=== PATIENT | male | born 1945 | race Caucasian/White ===

== ENCOUNTER 2018-01-27 11:17 | Outpatient (CLI) | payer MEDICARE ==
--- NOTE | 2018-01-27 13:08 | RAD ---
TWO VIEW CHEST: HISTORY: Cough and COPD. FINDINGS: The lungs are well aerated. Mild interstitial prominence is noted. There is no evidence of infiltra te or effusion. No evidence of vascular congestion. Heart size within normal range. Mild aortic ca lcification. Mild degenerative spine change. IMPRESSION: Mild interstitial prominence. The chest was otherwise unremarkable. POS: [facility]
== END 2018-01-27 11:18 | disposition home or self-care (01) ==
LOC: SCSRAD 11:17
PROVIDERS: ATTEND Family Medicine
DX: J44.9 Chronic obstructive pulmonary disease, unspecified (principal)
CPT/HCPCS: 71046

== ENCOUNTER 2018-06-26 20:25 | Emergency (ER) | payer MEDICARE ==
[2018-06-26] MEDS ORDERED: Lidocaine 1% PF 5 ML VIAL ONE (20:55)
[2018-06-26] MEDS ORDERED: Adacel (T-DAP) 0.5 ML VIAL ONE (20:57)
== END 2018-06-26 21:30 | disposition home or self-care (01) ==
LOC: SCSER 20:25
DX: S61.012A Laceration without foreign body of left thumb without damage to nail, initial encounter (principal); I10 Essential (primary) hypertension; Z23 Encounter for immunization; Z79.899 Other long term (current) drug therapy; W26.0XXA Contact with knife, initial encounter
CPT/HCPCS: 12001; 90471; 90715; 99406; J2001

== ENCOUNTER 2020-05-08 10:19 | Outpatient (CLI) | payer MEDICARE ==
--- NOTE | 2020-05-08 13:07 | RAD ---
LEFT HAND 3 VIEWS: Date: 05/08/2020 HISTORY: Injury to hand and wrist region. FINDINGS: The bones appear demineralized. There are arthritic changes of the hand. These include typical osteoa rthritic changes of the interphalangeal joints, first carpometacarpal joint space, and in addition th ere is joint space narrowing at the second and third metacarpophalangeal joints with some possible ea rly osteophyte changes of the third metacarpal. There is chondrocalcinosis of the triangular fibrocar tilage. 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 IMPRESSION: 1. No evidence of fracture. 2. Arthritic changes of the wrist. This includes typical osteoarthritic changes, but other changes t hat would suggest the possibility of pyrophosphate arthropathy. POS: [facility]
--- NOTE | 2020-05-08 13:11 | RAD ---
LEFT WRIST 3 VIEWS: Date: 05/08/2020 HISTORY: Wrist pain. Injury to left wrist. 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 There is narrowing of the radiocarpal joint with chondrocalcinosis seen at the triangular fibrocartilage and at the radiocarpal joint. Degenerative c hanges are seen at the carpometacarpals. There is dorsiflexion of the lunate, which is probably chronic. There is deformity of the scaphoid an d also deformity of the trapezium. Acute carpal fracture cannot be excluded involving trapezium or sc aphoid, although these findings may be chronic. Recommend further evaluation of the wrist with MRI or CT to better delineate carpal abnormalities. POS: [facility]
== END 2020-05-08 10:20 | disposition home or self-care (01) ==
LOC: SCSRAD 10:19
PROVIDERS: ATTEND Family Medicine
DX: S69.92XA Unspecified injury of left wrist, hand and finger(s), initial encounter (principal); M19.032 Primary osteoarthritis, left wrist; M25.832 Other specified joint disorders, left wrist; M11.232 Other chondrocalcinosis, left wrist; M21.232 Flexion deformity, left wrist

== ENCOUNTER 2023-04-28 09:51 | Outpatient (CLI) | payer MEDICARE ==
[2023-04-28 10:56] LABS: Hematocrit 37.1 % (38.8-50.0); Hemoglobin 13.1 g/dL (13.5-17.5)
[2023-04-28 11:18] LABS: Anion Gap 15 mmol/L (10-20); BUN (Urea Nitrogen) 10 mg/dL (8.4-25.7); Calc. Creatinine Clearance 0 mL/min (70-130); Calcium 9.3 mg/dL (7.8-10.44); Carbon Dioxide 23 mmol/L (23-31); Chloride 100 mmol/L (98-107); Estimated GFR 91; Glucose 86 mg/dL (83-110); Potassium 4.3 mmol/L (3.5-5.1); Sodium 134 mmol/L (136-145)
== END 2023-04-28 09:52 | disposition home or self-care (01) ==
LOC: LABBT 09:51
PROVIDERS: ATTEND Student in an Organized Health Care Education/Training Program
DX: Z01.818 Encounter for other preprocedural examination (principal); C44.222 Squamous cell carcinoma of skin of right ear and external auricular canal; H93.8X1 Other specified disorders of right ear
CPT/HCPCS: 80048; 85014; 85018; 93005; 93010

== ENCOUNTER 2023-05-05 07:14 | Day surgery (SDC) | payer MEDICARE ==
[2023-04-28 10:26] VITALS: BMI 20.2
[~2023-05-05 07:14] MED LIST: Dexmedetomidine 200 MCG/2 ML VIAL ONE; fentaNYL 50 mcg/mL 1 mL Vial ONE
[2023-05-05] MEDS ORDERED: Bacitracin Zinc Ointment 30 gm TUBE ONE (08:10)
[2023-05-05] MEDS ORDERED: Lidocaine 1% (PF) 30 ML VIAL ONE (08:10)
[2023-05-05] MEDS ORDERED: Tobramycin/Dexamethasone Ophth Oint 3.5 GM TUBE ONE (08:10)
[2023-05-05] MEDS ORDERED: EPINEPHrine 1 MG/ML AMP ONE (08:10)
[2023-05-05] MEDS ORDERED: Propofol 500 MG/50 ML VIAL ONE (08:24)
[2023-05-05] MEDS ORDERED: Glycopyrrolate 0.2 MG/ML 5 ML SYRINGE ONE (08:49)
[2023-05-05] MEDS ORDERED: PROPOFOL 200 MG/20 ML VIAL ONE (08:49)
== END 2023-05-05 11:13 | disposition home or self-care (01) ==
LOC: SDC 07:14
PROVIDERS: ATTEND Student in an Organized Health Care Education/Training Program
PROC: 0HX2XZZ Transfer Right Ear Skin, External Approach (ICD-10-PCS; principal; 2023-05-05)
DX: C44.222 Squamous cell carcinoma of skin of right ear and external auricular canal (principal); H93.8X1 Other specified disorders of right ear; I10 Essential (primary) hypertension; F17.210 Nicotine dependence, cigarettes, uncomplicated; Z79.82 Long term (current) use of aspirin; Z79.899 Other long term (current) drug therapy
CPT/HCPCS: 14060; J3010; 88305; 88331; 88332; J0171; J2001; J2704

== ENCOUNTER 2023-07-15 14:47 | Outpatient (CLI) | payer MEDICARE | END 2023-07-15 14:48 | disposition home or self-care (01) | LOC: ULT 14:47 | PROVIDERS: ATTEND Family Medicine | DX: I73.9 Peripheral vascular disease, unspecified (principal); R93.6 Abnormal findings on diagnostic imaging of limbs | CPT/HCPCS: 93923 ==

== ENCOUNTER 2023-08-19 07:48 | Outpatient (CLI) | payer MEDICARE ==
[2023-08-19] MEDS ORDERED: Iopamidol 370 76% 100 ML VIAL ONE (10:36)
== END 2023-08-19 07:49 | disposition home or self-care (01) ==
LOC: CT 07:48
PROVIDERS: ATTEND Thoracic Surgery (Cardiothoracic Vascular Surgery)
DX: I70.223 Atherosclerosis of native arteries of extremities with rest pain, bilateral legs (principal); I74.5 Embolism and thrombosis of iliac artery
CPT/HCPCS: 75635; 82565

== ENCOUNTER 2023-09-03 08:19 | Outpatient (CLI) | payer MEDICARE ==
[2023-09-03 11:32] LABS: Anion Gap 13 mmol/L (10-20); BUN (Urea Nitrogen) 13 mg/dL (8.4-25.7); Calc. Creatinine Clearance 0 mL/min (70-130); Calcium 9.3 mg/dL (7.8-10.44); Carbon Dioxide 25 mmol/L (23-31); Chloride 103 mmol/L (98-107); Estimated GFR 92; Glucose 79 mg/dL (83-110); Potassium 4.7 mmol/L (3.5-5.1); Sodium 136 mmol/L (136-145)
== END 2023-09-03 08:20 | disposition home or self-care (01) ==
LOC: LABBT 08:19
PROVIDERS: ATTEND Thoracic Surgery (Cardiothoracic Vascular Surgery)
DX: Z01.818 Encounter for other preprocedural examination (principal); I70.223 Atherosclerosis of native arteries of extremities with rest pain, bilateral legs
CPT/HCPCS: 80048; 93005; 93010

== ENCOUNTER 2023-09-03 08:30 | Inpatient (IN) | payer MEDICARE ==
[2023-09-03 10:47] LABS: Hematocrit 36.6 % (38.8-50.0); Hemoglobin 12.7 g/dL (13.5-17.5); Mean Corpuscular HGB CONC 34.7 g/dL (32.0-36.0); Mean Corpuscular Hemoglobin 34.8 pg (27.0-33.0); Mean Corpuscular Volume 100.3 fl (81.2-95.1); Mean Platelet Volume 10.6 fl (7.4-10.4); Platelet Count 236 10x3/uL (150-450); RBC Distribution Width 12.7 % (11.5-14.5); Red Blood Cell (RBC) Count 3.65 10x6/uL (4.32-5.72); White Blood Cell (WBC) Count 8.9 10x3/uL (3.5-10.5)
[2023-09-04] MEDS ORDERED: Lidocaine 1% MPF 2 ML VIAL ONE ×2 (06:11→07:14)
[2023-09-04] MEDS ORDERED: Heparin 10,000 UNITS/ 10 ML VIAL ONE ×2 (06:41→08:16)
[2023-09-04] MEDS ORDERED: Heparin 5,000 UNITS/ML VIAL ONE (06:42)
[2023-09-04] MEDS ORDERED: Heparin 10,000 UNITS/1 ML VIAL 30,000 UNITS in Sodium Chloride 0.9% 1,000 ML FS SCH (07:00)
[2023-09-04] MEDS ORDERED: CEFAZOLIN 2 GM VIAL ONE (07:36)
[2023-09-04] MEDS ORDERED: Sodium Chloride 0.9% 100 ML ONE (07:36)
[2023-09-04] MEDS ORDERED: Esmolol 100 MG/10 ML VIAL ONE (07:39)
[2023-09-04] MEDS ORDERED: Dexamethasone 4 mg/ml Vial ONE (07:39)
[2023-09-04] MEDS ORDERED: Lidocaine 1% PF 5 ML VIAL ONE ×2 (07:39→08:16)
[2023-09-04] MEDS ORDERED: Rocuronium Bromide 10 MG/ML (10ML VIAL) ONE (07:39)
[2023-09-04] MEDS ORDERED: Ondansetron PF 4 MG/2 ML Vial ONE ×2 (07:39→08:16)
[2023-09-04] MEDS ORDERED: PROPOFOL 20 ML ONE (07:39)
[2023-09-04] MEDS ORDERED: PHENYLEPHRINE-NS 100 MCG/ML 10 ML SYRINGE ONE (07:39)
[2023-09-04] MEDS ORDERED: fentaNYL 50 mcg/mL 1 mL Vial ONE ×2 (07:45→11:55)
[2023-09-04] MEDS ORDERED: Sodium Chloride 0.9% 200 ML ONE (08:16)
[2023-09-04] MEDS ORDERED: Dexamethasone 20 MG/5 ML VIAL ONE (08:16)
[2023-09-04] MEDS ORDERED: Sodium Chloride 0.9% 250 ML 750 ML ONE (08:16)
[2023-09-04] MEDS ORDERED: NOREPINEPHRINE 8 MG/250 ML-D5W 250 ML ONE (08:16)
[2023-09-04] MEDS ORDERED: CEFAZOLIN 1 GM VIAL ONE (08:17)
[2023-09-04] MEDS ORDERED: Calcium Chloride 1 GM/10 ML Abboject SYRINGE ONE (08:17)
[2023-09-04] MEDS ORDERED: Protamine Sulfate 50 MG/5 ML VIAL ONE (09:51)
[2023-09-04] MEDS ORDERED: HYDROmorphone 2 MG/ML VIAL ONE (10:06)
[2023-09-04] MEDS ORDERED: Glycopyrrolate 0.2 MG/ML 5 ML SYRINGE ONE (10:38)
[2023-09-04] MEDS ORDERED: NEOSTIGMINE 3 MG/3 ML SYR 3 MG/3 ML SYRINGE ONE (10:38)
[2023-09-04] MEDS ORDERED: Ondansetron HCl/PF 4 MG/2 ML Vial IVP PRN (11:34)
[2023-09-04] MEDS ORDERED: Promethazine HCl 25 MG/ML VIAL IM PRN ×2 (11:34)
[2023-09-04] MEDS ORDERED: diphenhydrAMINE 50 MG/ML VIAL IVP PRN (11:34)
[2023-09-04] MEDS ORDERED: HYDROmorphone 2 MG/ML VIAL SLOW IVP PRN (11:34)
[2023-09-04] MEDS ORDERED: diphenhydrAMINE 25 MG CAP PO PRN (11:34)
[2023-09-04] MEDS ORDERED: Naloxone HCl 0.4 mg/ml Vial IV PRN (11:34)
[2023-09-04] MEDS ORDERED: diphenhydrAMINE 50 MG/ML VIAL IM PRN (11:34)
[2023-09-04] MEDS ORDERED: Phenylephrine 40 MG/NS 250 ML 40 MG in Premix 1 BAG IVPB PRN (11:41)
[2023-09-04] MEDS ORDERED: fentaNYL 50 mcg/mL 1 mL Vial SLOW IVP PRN (11:41)
[2023-09-04] MEDS ORDERED: Ipratropium/Albuterol 3 ML NEB NEB PRN (11:41)
[2023-09-04] MEDS ORDERED: Ondansetron PF 4 MG/2 ML Vial IVP PRN (11:41)
[2023-09-04] MEDS ORDERED: Communication Order-Pharmacy FS SCH (11:45)
[2023-09-04] MEDS ORDERED: hydrALAZINE 20 MG/ML VIAL ONE (12:04)
[2023-09-04] MEDS: Lactated Ringer's 1,000 ML IV SCH ×2 (12:10→18:03)
[2023-09-04] MEDS ORDERED: HYDROmorphone 0.5 MG/0.5 ML SYRINGE ONE ×2 (12:15→12:42)
[2023-09-04 12:52] LABS: Hematocrit 35.9 % (42.0-52.0); Hemoglobin 12.4 g/dL (14.0-18.0); Mean Corpuscular HGB CONC 34.5 g/dL (32.0-36.0); Mean Corpuscular Hemoglobin 34.7 pg (27.0-31.0); Mean Corpuscular Volume 100.6 fl (78.0-98.0); Mean Platelet Volume 10.2 fL (7.4-10.4); Platelet Count 217 10x3/uL (130-400); RBC Distribution Width 12.5 % (11.5-14.5); Red Blood Cell (RBC) Count 3.57 mill/uL (4.70-6.10); White Blood Cell (WBC) Count 22.2 10x3/uL (4.8-10.8)
[2023-09-04] MEDS: niCARdipine 25 MG in Sodium Chloride 0.9% 250 ML 250 ML IVPB PRN ×2 (12:55→21:30)
[2023-09-04 13:18] LABS: Anion Gap 16 mmol/L (10-20); BUN (Urea Nitrogen) 10 mg/dL (8.4-25.7); Calc. Creatinine Clearance 61 mL/min (70-130); Calcium 8.6 mg/dL (7.8-10.44); Carbon Dioxide 20 mmol/L (23-31); Chloride 105 mmol/L (98-107); Estimated GFR 94; Glucose 148 mg/dL (83-110); Potassium 4.1 mmol/L (3.5-5.1); Sodium 137 mmol/L (136-145)
[2023-09-04] MEDS ORDERED: FLU VACC QS2023(65UP)/MF59C/PF 60 MCG/0.5 ML SYRINGE IM ONE (16:30)
[2023-09-04] MEDS: CEFAZOLIN 2 GM in Sodium Chloride 0.9% 100 ML IVPB SCH ×2 (16:38→23:56)
[2023-09-05] MEDS: Lactated Ringer's 1,000 ML IV SCH ×3 (01:49→17:59)
[2023-09-05] MEDS: niCARdipine 25 MG in Sodium Chloride 0.9% 250 ML 250 ML IVPB PRN ×3 (01:55→20:02)
[2023-09-05 04:19] LABS: #Monocytes 1.9 thou/uL (0.11-0.59); #Neutrophils 10.7 thou/uL (1.40-6.50); %Basophils 0.1 % (0.0-1.0); %Eosinophils 0.3 % (0.0-10.0); %Monocytes 13.3 % (0.0-10.0); %Neutrophils 76.9 % (42.0-75.0); Hematocrit 28.9 % (42.0-52.0); Mean Corpuscular HGB CONC 34.6 g/dL (32.0-36.0); Mean Corpuscular Hemoglobin 35.3 pg (27.0-31.0); Mean Corpuscular Volume 102.1 fl (78.0-98.0); Mean Platelet Volume 10.3 fL (7.4-10.4); Platelet Count 178 10x3/uL (130-400); RBC Distribution Width 12.9 % (11.5-14.5); Red Blood Cell (RBC) Count 2.83 mill/uL (4.70-6.10)
[2023-09-05 04:38] LABS: Anion Gap 11 mmol/L (10-20); BUN (Urea Nitrogen) 10 mg/dL (8.4-25.7); Calc. Creatinine Clearance 58 mL/min (70-130); Calcium 8.3 mg/dL (7.8-10.44); Carbon Dioxide 24 mmol/L (23-31); Chloride 104 mmol/L (98-107); Estimated GFR 93; Glucose 110 mg/dL (83-110); Potassium 4.1 mmol/L (3.5-5.1); Sodium 135 mmol/L (136-145)
[2023-09-05] MEDS: CEFAZOLIN 2 GM in Sodium Chloride 0.9% 100 ML IVPB SCH (09:25)
[2023-09-05] MEDS: Ondansetron PF 4 MG/2 ML Vial IVP PRN (11:56)
[2023-09-06] MEDS: Lactated Ringer's 1,000 ML IV SCH (01:45)
[2023-09-06] MEDS: HYDROmorphone/PF 10 MG in Sodium Chloride 0.9% 99 ML IV PRN (03:30)
[2023-09-06] MEDS: hydrALAZINE 20 MG/ML VIAL SLOW IVP PRN (04:23)
[2023-09-06] MEDS: niCARdipine 25 MG in Sodium Chloride 0.9% 250 ML 250 ML IVPB PRN ×2 (04:57→18:48)
[2023-09-06 06:01] LABS: #Monocytes 1.9 thou/uL (0.11-0.59); #Neutrophils 11.5 thou/uL (1.40-6.50); %Basophils 0.3 % (0.0-1.0); %Eosinophils 0.1 % (0.0-10.0); %Lymphocytes 7.2 % (21.0-51.0); %Monocytes 12.8 % (0.0-10.0); %Neutrophils 79.3 % (42.0-75.0); Hematocrit 28.6 % (42.0-52.0); Mean Corpuscular Hemoglobin 35.2 pg (27.0-31.0); Mean Corpuscular Volume 100.7 fl (78.0-98.0); Mean Platelet Volume 10.7 fL (7.4-10.4); Platelet Count 161 10x3/uL (130-400); RBC Distribution Width 12.8 % (11.5-14.5); Red Blood Cell (RBC) Count 2.84 mill/uL (4.70-6.10); White Blood Cell (WBC) Count 14.5 10x3/uL (4.8-10.8)
[2023-09-06 06:27] LABS: Anion Gap 10 mmol/L (10-20); BUN (Urea Nitrogen) 9 mg/dL (8.4-25.7); Calc. Creatinine Clearance 65 mL/min (70-130); Calcium 8.4 mg/dL (7.8-10.44); Carbon Dioxide 27 mmol/L (23-31); Chloride 100 mmol/L (98-107); Estimated GFR 96; Glucose 91 mg/dL (83-110); Potassium 3.8 mmol/L (3.5-5.1); Sodium 133 mmol/L (136-145)
[2023-09-06] MEDS: D5 1/2 NS w/20 mEq KCL 1,000 ML IV SCH ×3 (08:29→23:58)
[2023-09-06] MEDS: Ondansetron PF 4 MG/2 ML Vial IVP PRN (09:02)
[2023-09-06] MEDS: Metoprolol Tartrate 5 MG (5 mL) VIAL IVP PRN (09:27)
[2023-09-07] MEDS: niCARdipine 25 MG in Sodium Chloride 0.9% 250 ML 250 ML IVPB PRN ×3 (04:22→22:42)
[2023-09-07] MEDS: hydrALAZINE 20 MG/ML VIAL SLOW IVP PRN (06:00)
[2023-09-07] MEDS: D5 1/2 NS w/20 mEq KCL 1,000 ML IV SCH (08:00)
[2023-09-07] MEDS: Metoprolol Tartrate 5 MG (5 mL) VIAL IVP PRN (09:18)
[2023-09-07] MEDS ORDERED: Aspirin 81 mg Enteric Coated Tablet PO SCH (13:30)
[2023-09-07] MEDS: Lisinopril 5 MG TAB PO SCH (21:00)
[2023-09-08] MEDS: HYDROmorphone/PF 10 MG in Sodium Chloride 0.9% 99 ML IV PRN (04:22)
[2023-09-08] MEDS: D5 1/2 NS w/20 mEq KCL 1,000 ML IV SCH (04:41)
[2023-09-08] MEDS: Aspirin 81 mg Enteric Coated Tablet PO SCH (08:00)
[2023-09-08] MEDS: Lisinopril 5 MG TAB PO SCH ×2 (08:00→20:45)
[2023-09-08] MEDS ORDERED: Acetaminophen 325 MG TAB PO PRN (08:17)
[2023-09-08] MEDS: Tamsulosin HCl 0.4 MG CAP PO SCH (08:25)
[2023-09-08] MEDS ORDERED: Amlodipine 5 MG TAB PO SCH (09:00)
[2023-09-08] MEDS ORDERED: Furosemide 20 MG TAB PO SCH (09:00)
[2023-09-08 12:07] LABS: Actual Bicarbonate (HCO3a) 23.8 mEq/L (22-28); Analyzer IN Cardio OR; Base Excess (BEa) -0.1 mEq/L (-2.0 to +3.0); CO2 Tension 36.4 mmHg (35.0-45.0); Calcium, Ionized (arterial) 1.15 mmol/L (1.12-1.30); Carboxyhemoglobin (COHb) 0.7 gm% (0.0-3.0); Hematocrit-ABG 35 % (42.0-52.0); Hemoglobin (Hb) 11.8 g/dL (14.0-18.0); O2 Tension (PaO2), arterial 228.6 mmHg (> 70.0); Potassium - ABG Lab 3.81 mmol/L (3.70-5.30); pH, Arterial 7.434 (7.35-7.45)
[2023-09-08 12:08] LABS: Puncture Site Arterial Line
[2023-09-08] MEDS: hydrALAZINE 20 MG/ML VIAL SLOW IVP PRN (14:09)
[2023-09-08 14:14] VITALS: BMI 19.1
[2023-09-08] MEDS ORDERED: Furosemide 40 MG TAB PO SCH (14:45)
[2023-09-08] MEDS: Amlodipine 5 MG TAB PO SCH (20:46)
[2023-09-09] MEDS: Tamsulosin HCl 0.4 MG CAP PO SCH (07:51)
[2023-09-09] MEDS: Lisinopril 5 MG TAB PO SCH ×2 (07:51→20:15)
[2023-09-09] MEDS: Amlodipine 5 MG TAB PO SCH ×2 (07:51→20:14)
[2023-09-09] MEDS: Aspirin 81 mg Enteric Coated Tablet PO SCH (07:52)
[2023-09-09] MEDS ORDERED: Furosemide 20 MG (2 mL) VIAL SLOW IVP SCH (09:00)
[2023-09-10] MEDS: Aspirin 81 mg Enteric Coated Tablet PO SCH (07:55)
[2023-09-10] MEDS: Lisinopril 5 MG TAB PO SCH (07:55)
[2023-09-10] MEDS: Amlodipine 5 MG TAB PO SCH (07:55)
[2023-09-10] MEDS: Tamsulosin HCl 0.4 MG CAP PO SCH (07:55)
[2023-09-10 07:58] VITALS: BP 151/60
[2023-09-10 08:08] VITALS: TEMP 98.4
== END 2023-09-10 09:45 | disposition home health service (06) | DRG 272 ==
LOC: SURG A 09-04 05:33 → CCU 09-04 15:07
PROVIDERS: ADMIT Thoracic Surgery (Cardiothoracic Vascular Surgery); ATTEND Thoracic Surgery (Cardiothoracic Vascular Surgery)
PROC: 04CL0ZZ Extirpation of Matter from Left Femoral Artery, Open Approach (ICD-10-PCS; principal; 2023-09-04)
PROC: 041 Lower Arteries, Bypass (ICD-10-PCS; 2023-09-04)
PROC: 4A033R1 Measurement of Arterial Saturation, Peripheral, Percutaneous Approach (ICD-10-PCS; 2023-09-04)
PROC: 3E033XZ Introduction of Vasopressor into Peripheral Vein, Percutaneous Approach (ICD-10-PCS; 2023-09-04)
DX: I70.222 Atherosclerosis of native arteries of extremities with rest pain, left leg (principal); I10 Essential (primary) hypertension; R31.0 Gross hematuria; C67.9 Malignant neoplasm of bladder, unspecified; N40.1 Benign prostatic hyperplasia with lower urinary tract symptoms; R33.8 Other retention of urine; Z87.891 Personal history of nicotine dependence; Z98.890 Other specified postprocedural states; Z79.82 Long term (current) use of aspirin; Z79.899 Other long term (current) drug therapy; E78.5 Hyperlipidemia, unspecified; Z90.89 Acquired absence of other organs; Z90.49 Acquired absence of other specified parts of digestive tract
CPT/HCPCS: 36415; 36416; 80048; 82805; 85025; 85027; 86850; 86900; 86901; C1747; C1889; J0360; J0690; J1100; J1170; J1642; J1644; J1940; J2405; J2704; J2720; J3010; J3480; J3490; J7050; J7120

== ENCOUNTER 2023-10-21 10:22 | Outpatient (CLI) | payer MEDICARE ==
[2023-10-21 12:20] LABS: Bilirubin Neg (Negative); Blood, Urine Negative (Negative); Clarity Clear (Clear); Glucose, Urine (Dipstick) Normal (Negative); Ketone, Urine Negative (Negative); Leukocyte Negative (Negative); Nitrite Negative (Negative); Protein, Urine (Dipstick) Negative (Neg-Trace); Specific Gravity, Urine 1.005 (1.005-1.030); Urobilinogen Normal mg/dL (Less than 2)
[2023-10-21 12:42] LABS: Bacteria/HPF None Seen HPF (None Seen); RBC/HPF None Seen HPF (0-3); Squamous Epithelial None Seen HPF (0-3); WBC/HPF None Seen HPF (0-3)
[2023-10-21 12:45] LABS: Hematocrit 31.7 % (38.8-50.0); Hemoglobin 10.7 g/dL (13.5-17.5); Mean Corpuscular HGB CONC 33.8 g/dL (32.0-36.0); Mean Corpuscular Hemoglobin 33.2 pg (27.0-33.0); Mean Corpuscular Volume 98.4 fl (81.2-95.1); Mean Platelet Volume 11.1 fl (7.4-10.4); Platelet Count 256 10x3/uL (150-450); RBC Distribution Width 13.8 % (11.5-14.5); Red Blood Cell (RBC) Count 3.22 10x6/uL (4.32-5.72); White Blood Cell (WBC) Count 10.2 10x3/uL (3.5-10.5)
[2023-10-21 12:46] LABS: PTT 26.5 sec (22.0-33.0); Prothrombin Time 10.3 sec (9.5-12.1)
[2023-10-21 13:06] LABS: Anion Gap 14 mmol/L (10-20); BUN (Urea Nitrogen) 13 mg/dL (8.4-25.7); Calc. Creatinine Clearance 0 mL/min (70-130); Calcium 9.1 mg/dL (7.8-10.44); Carbon Dioxide 26 mmol/L (23-31); Chloride 101 mmol/L (98-107); Estimated GFR 90; Glucose 76 mg/dL (83-110); Potassium 4.3 mmol/L (3.5-5.1); Sodium 137 mmol/L (136-145)
== END 2023-10-21 10:23 | disposition home or self-care (01) ==
LOC: LABBT 10:22
PROVIDERS: ATTEND Urology
DX: Z01.818 Encounter for other preprocedural examination (principal); C67.9 Malignant neoplasm of bladder, unspecified; N40.0 Benign prostatic hyperplasia without lower urinary tract symptoms
CPT/HCPCS: 80048; 81001; 85027; 85610; 85730; 87086; 93005; 93010

== ENCOUNTER 2023-11-23 07:15 | Outpatient (CLI) | payer MEDICARE | END 2023-11-23 07:16 | disposition home or self-care (01) | LOC: CT 07:15 | PROVIDERS: ATTEND Family Medicine | DX: Z12.2 Encounter for screening for malignant neoplasm of respiratory organs (principal); R91.1 Solitary pulmonary nodule; F17.210 Nicotine dependence, cigarettes, uncomplicated | CPT/HCPCS: 71271 ==